=== PATIENT | female | born 1930 | race Caucasian/White ===

== ENCOUNTER → 2016-09-16 | Outpatient (CLI) | payer OTHER ==
[~2016-09-16] MED LIST: ASPI-435 PO; BIOT1CAP8 PO; CALC500C70 PO; CHLORTRIMETON PO; CHOL2000 PO; COEN1CAP32 PO; GLUC250C PO; INDAPAMIDE PO; IRON PO; LACT1CAP6 PO; LACTASE PO; LANS30CA12 PO; MAGN400T6 PO; MCRK20 PO; NAPR1TAB9 PO; PSYL0.524; RESERVATROL PO; SACC250C11; ZNTT/150 PO; tumeric PO
--- NOTE | 2016-09-16 12:28 | DIAGNOSTIC IMAGING REPORT ---
RIGHT WRIST MIN 3 VIEWS ROUTINE CLINICAL HISTORY: RIGHT WRIST PAIN Right fracture COMPARISON: 08/01/2016 DISCUSSION: Interval avulsion ulnar styloid unchanged from the prior study. Probable nondisplaced hairline fracture mid navicular. This is not seen in the prior study mild soft tissue edema IMPRESSION: 1. Small avulsion ulnar styloid unchanged. There are 2. Nondisplaced cortical fracture mid navicular Electronically signed by: Jordan Boyd M.D. 09/16/2016 12:26 PM
== END | disposition home or self-care (01) ==
LOC: C.RDSM 13:47
PROVIDERS: ATTEND Physical Medicine & Rehabilitation Sports Medicine
DX: R52 Pain, unspecified (principal)

== ENCOUNTER → 2016-12-24 | Outpatient (CLI) | payer OTHER ==
[~2016-12-24] MED LIST changes: +OPTIRAY 320 IV PRN
--- NOTE | 2016-12-24 10:12 | DIAGNOSTIC IMAGING REPORT ---
CHEST CT WITH CONTRAST CT DOSE: 547.03 mGy.cm HISTORY: Ovarian carcinoma neoplasm TECHNIQUE: Multiaxial CT images of the chest were performed following the intravenous administration of contrast. COMPARISON: 09/27/2016 FINDINGS: Unchanged exam. Stable nodule right base. No new or additional parenchymal nodularity. No focal infiltrate. Hilar and mediastinal regions show no significant adenopathy. Small hepatic cyst unchanged. IMPRESSION: No evidence for metastatic disease. No change from the prior study. Electronically signed by: Jordan Boyd M.D. 12/24/2016 10:10 AM Dictated Date/Time: 12/24/2016 10:08 AM
--- NOTE | 2016-12-24 10:19 | DIAGNOSTIC IMAGING REPORT ---
CT OF THE ABDOMEN AND PELVIS WITH CONTRAST CLINICAL HISTORY: Ovarian cancer. COMPARISON STUDY: CT of the abdomen and pelvis September 27, 2016. TECHNIQUE: Following IV administration of 94 mL of Optiray-320, axial images of the abdomen and pelvis were obtained from the lung bases to the proximal femurs. Images were reviewed in the axial, sagittal, and coronal planes. IV contrast was administered without complication. Oral contrast was administered. FINDINGS: The chest will reported separately. A few subcentimeter hypodense hepatic lesions are too small to characterize but are unchanged since prior exams. These are benign. The spleen, adrenal glands, kidneys and pancreas are unremarkable. The gallbladder is surgically absent. There is a moderate amount of stool within the colon. There is sigmoid diverticulosis without evidence for acute diverticulitis. There is no ascites. There is no bowel obstruction. A few suspected peritoneal nodules are seen noted. These include a 6 mm left upper quadrant nodule shown on image 110 of 446. This is unchanged since CT of September 27, 2016. A left mid abdominal mesenteric nodule measuring 1.3 x 0.7 cm has likely slightly decreased in size since prior exam when it measured 1.8 x 0.9 cm. No new peritoneal implants are present. No suspicious skeletal lesions are identified. IMPRESSION: 1. Slight decrease in a left lower quadrant mesenteric nodule since exam of September 27, 2016. Otherwise, a few suspected peritoneal implants are similar to prior exam. No evidence for progressive metastatic disease. 2. Moderate amount of stool within the colon. No bowel obstruction. Electronically signed by: Nas Yee M.D. 12/24/2016 10:17 AM Dictated Date/Time: 12/24/2016 10:08 AM
== END | disposition home or self-care (01) ==
LOC: C.CTS 09:31
PROVIDERS: ATTEND Nurse Practitioner
DX: C56.9 Malignant neoplasm of unspecified ovary (principal)

== ENCOUNTER → 2017-03-08 | Outpatient (CLI) | payer OTHER ==
[~2017-03-08] MED LIST changes: -OPTIRAY 320 IV PRN
--- NOTE | 2017-03-08 15:37 | MAMMOGRAPHY REPORT ---
BILATERAL DIGITAL SCREENING MAMMOGRAM WITH CAD: 03/08/2017 CLINICAL HISTORY: Routine screening. Patient has no complaints. TECHNIQUE: Bilateral CC, MLO, repeat right CC and MLO views were obtained. Current study was also ev aluated with a Computer Aided Detection (CAD) system. COMPARISON: Comparison is made to exams dated: 03/04/2016 mammogram, 02/13/2015 mammogram, 02/12/2014 lance mogram, 02/08/2013 mammogram, 01/27/2012 mammogram, and 01/25/2011 mammogram - [facility] ter. BREAST COMPOSITION: The tissue of both breasts is heterogeneously dense, which may obscure small mas ses. FINDINGS: The hub of a Mediport catheter is visualized in the posterior upper inner right breast. Th ere are mild vascular calcifications in the breasts. No suspicious mass, architectural distortion or cluster of suspicious microcalcifications is seen. IMPRESSION: ACR BI-RADS CATEGORY 1: NEGATIVE There is no mammographic evidence of malignancy. A 1 year screening mammogram is recommended. The pa tient will receive written notification of the results. Approximately 10% of breast cancers are not detected with mammography. A negative mammographic report should not delay biopsy if a clinically suggestive mass is present. Lani Ceja M.D. ay/:03/08/2017 14:40:26 Hog Killer: Jenae BLAKE)([place]), [facility] letter sent: Normal 1/2 BI-RADS Code: ACR BI-RADS Category 1: Negative
== END | disposition home or self-care (01) ==
LOC: C.MAMM 09:56
PROVIDERS: ATTEND Family Medicine
DX: Z12.31 Encounter for screening mammogram for malignant neoplasm of breast (principal)

== ENCOUNTER → 2017-03-21 | Outpatient (CLI) | payer OTHER ==
--- NOTE | 2017-03-21 14:08 | DIAGNOSTIC IMAGING REPORT ---
RIBS BILATERAL WITH PA CHEST HISTORY:86 yearsFemalePLEURODYNIA . History of ovarian cancer. COMPARISON: CT chest 12/24/2016 TECHNIQUE: Frontal view of the chest with additional views of the bilateral ribs. FINDINGS: Right internal jugular [id number] catheter is seen with distal tip terminating within the expected region of the proximal to mid SVC. Heart and mediastinal or hilar silhouettes are within normal limits. There is minimal biapical pleural parenchymal scarring. No pneumothorax, pleural effusion or focal airspace consolidation. Degenerative changes involve the shoulders bilaterally. Surgical clips are seen within the upper abdomen. No acute displaced rib fracture identified. IMPRESSION: 1. No acute cardiopulmonary process. 2. No acute displaced rib fracture or pneumothorax. The above report was generated using voice recognition software. It may contain grammatical, syntax or spelling errors. Electronically signed by: Vamshi Olvera 03/21/2017 2:07 PM Dictated Date/Time: 03/21/2017 2:04 PM
== END | disposition home or self-care (01) ==
LOC: C.RAD1850 13:41
PROVIDERS: ATTEND Family Medicine
DX: R07.81 Pleurodynia (principal)

== ENCOUNTER → 2017-04-20 | Outpatient (CLI) | payer OTHER ==
[~2017-04-20] MED LIST changes: +GADAVIST IV PRN
--- NOTE | 2017-04-20 21:56 | DIAGNOSTIC IMAGING REPORT ---
MRI OF THE BRAIN WITHOUT AND WITH IV CONTRAST CLINICAL HISTORY: Dizziness, abnormal gait, ovarian carcinoma. Possible metastatic disease. COMPARISON STUDY: No previous studies for comparison. TECHNIQUE: MRI of the brain was performed from the vertex to the skull base utilizing various T1 and T2 weighted sequences. Following the IV administration of 5.5 mL of Gadavist contrast, additional enhanced images were obtained. FINDINGS: Sagittal T1, axial diffusion, proton density and T2 weighted axial, coronal FLAIR, and pre and post axial T1-weighted images were acquired. These were supplemented with post gadolinium coronal T1 weighted images. There is a right hemispheric dural based extra-axial mass in the region of the sylvian fissure measuring 11 mm. While nonspecific, this likely represents a meningioma. Axial diffusion-weighted images reveal no evidence of acute or subacute infarction. There is no evidence of ventricular dilatation. Proton density T2-weighted and FLAIR images reveal there are moderate foci of increased T2 and FLAIR signal within the white matter, likely on a small vessel basis. There are no abnormal flow voids. With the exception of the enhancing right-sided extra-axial mass, there are no pathologically enhancing lesions. IMPRESSION: 1. No evidence of acute or subacute infarction 2. 11 mm enhancing dural based extra-axial mass in the region the right sylvian fissure. While nonspecific, this likely represents a meningioma 3. Moderate white matter disease likely a small vessel basis Electronically signed by: Tyree Pinzon M.D. 04/20/2017 9:54 PM Dictated Date/Time: 04/20/2017 9:52 PM
== END | disposition home or self-care (01) ==
LOC: C.MRI 20:29
PROVIDERS: ATTEND Internal Medicine Hematology & Oncology
DX: C56.9 Malignant neoplasm of unspecified ovary (principal); R22.0 Localized swelling, mass and lump, head; C18.9 Malignant neoplasm of colon, unspecified; C77.2 Secondary and unspecified malignant neoplasm of intra-abdominal lymph nodes; R35.0 Frequency of micturition; C48.2 Malignant neoplasm of peritoneum, unspecified

== ENCOUNTER → 2017-06-23 | Outpatient (CLI) | payer OTHER ==
[~2017-06-23] MED LIST changes: -GADAVIST IV PRN; +OPTIRAY 320 IV PRN
--- NOTE | 2017-06-23 12:32 | DIAGNOSTIC IMAGING REPORT ---
CHEST CT WITH CONTRAST CT DOSE: 620.36 mGy.cm HISTORY: OVARIAN CANCER TECHNIQUE: Multiaxial CT images of the chest were performed following the intravenous administration of contrast. A dose lowering technique was utilized adhering to the principles of ALARA. COMPARISON: Chest CT 12/24/2016. FINDINGS: No pneumothorax. No pleural effusions. The central airways are patent. Stable 5 mm nodule at the base of the right lower lobe on image 212. Stable 4 mm subpleural nodule within the left lower lobe on image 198. No new or suspicious pulmonary nodules identified. No suspicious lytic or blastic osseous lesions. A right Port-A-Cath terminates at the brachiocephalic/SVC junction. Small fat-containing right-sided Bochdalek hernia. No mediastinal or hilar lymphadenopathy. Aberrant right subclavian artery is again noted. There is approximately 50% stenosis at the proximal right subclavian artery. The main pulmonary arteries are patent. Thyroid gland appears surgically absent. IMPRESSION: No change compared to the prior studies. No evidence for metastatic disease within the chest. Please refer to the dedicated abdomen and pelvis CT performed the same day for further evaluation of the abdominal structures. Electronically signed by: Terrance Chapin M.D. 06/23/2017 12:31 PM Dictated Date/Time: 06/23/2017 12:24 PM
--- NOTE | 2017-06-23 12:36 | DIAGNOSTIC IMAGING REPORT ---
CT ABD/PELVIS IV AND ORAL CONT CLINICAL HISTORY: OVARIAN CANCER COMPARISON STUDY: 12/24/2016 TECHNIQUE: Following the IV administration of 94 mL of Optiray-320, CT scan of the abdomen and pelvis was performed from the lung bases to the proximal femurs. Images are reviewed in the axial, sagittal, and coronal planes. IV contrast was administered without complication. A dose lowering technique was utilized adhering to the principles of ALARA. CT DOSE: FINDINGS: Lower chest: The heart is normal in size and configuration, without pericardial effusion. The lung bases and pleural spaces are clear. Liver: There is a stable 4 mm hypodensity within the right hepatic lobe likely representing a cyst. There is mild hepatic steatosis. Gallbladder: Surgically absent Spleen: Normal in size and attenuation. Pancreas: Unremarkable. Adrenal glands: Unremarkable. Kidneys: There is symmetric renal cortical enhancement. The kidneys are normal in size without hydronephrosis. Bowel: There are no transition zones indicate bowel obstruction. No acute inflammatory changes are visualized. The appendix appears normal. Peritoneum: There are several left upper quadrant peritoneal nodules, the largest of which measures 1 cm. These appear larger on the preceding study, and are concerning for peritoneal tumor. The previously identified 13 mm left lower quadrant peritoneal nodule, is equivocally larger measuring 15 mm the current study. Vasculature: The abdominal aorta is normal in course and caliber. Adenopathy: None. Pelvic viscera: The uterus appears surgically absent Skeletal structures: No destructive osseous lesions are seen. IMPRESSION: 1. Slight increase in the size of the left peritoneal nodules, a finding viewed as suspicious for progressive peritoneal tumor implants. 2. No evidence of bowel obstruction. No evidence of free air. Normal appendix. Electronically signed by: Tyree Pinzon M.D. 06/23/2017 12:35 PM Dictated Date/Time: 06/23/2017 12:27 PM
== END | disposition home or self-care (01) ==
LOC: C.CTS 11:33
PROVIDERS: ATTEND Internal Medicine Hematology & Oncology
DX: C56.9 Malignant neoplasm of unspecified ovary (principal)

== ENCOUNTER → 2017-09-26 | Outpatient (CLI) | payer OTHER ==
[~2017-09-26] MED LIST changes: +GADAVIST IV PRN; -OPTIRAY 320 IV PRN
--- NOTE | 2017-09-26 08:52 | DIAGNOSTIC IMAGING REPORT ---
BRAIN COMBO HISTORY: 86 years-old Female OVARIAN CA acute dizziness for 6 months. History of ovarian carcinoma. COMPARISON: Brain MRI 04/20/2017, PET CT 08/27/2015 TECHNIQUE: Multiplanar multisequence MRI the brain was obtained both with and without the use of 5.5 mL Gadavist FINDINGS: There is no restricted diffusion to suggest acute infarction. The midline structures including the corpus callosum, brainstem, optic chiasm, infundibulum, pituitary and pineal glands are unremarkable in the sagittal T1 series. No cerebellar tonsillar herniation. Imaged upper cervical spine is unremarkable. There are scattered punctate areas of susceptibility artifact throughout the bilateral cerebral hemispheres which appear unchanged from prior study suggesting areas of microhemorrhage. No acute intracranial hemorrhage, midline shift, abnormal extra-axial collections or hydrocephalus. Moderate atrophy with multifocal areas of T2/FLAIR prolongation within the subcortical, deep and periventricular white matter of the cerebral hemispheres bilaterally compatible with chronic microvascular ischemic changes. Unchanged 10 x 11 x 7 mm dural based lesion adjacent to the right sylvian fissure is again seen nicely demonstrated on image 10 of series 10 and image 9 of series 11 which appears unchanged from comparison. No additional intra-axial or extra-axial lesions or abnormal enhancement identified. The major flow voids at the level of the skull base are patent. Mastoid air cells appear clear. Paranasal sinuses are also generally clear. Scalp, calvarium and soft tissues are unremarkable. IMPRESSION: 1. No acute intracranial abnormality identified. 2. Unchanged 11 mm dural-based enhancing lesion adjacent to the right sylvian fissure is again seen suggesting a meningioma. No additional abnormal intra-axial or extra-axial enhancement identified. 3. Stable findings as above. The above report was generated using voice recognition software. It may contain grammatical, syntax or spelling errors. Electronically signed by: Vamshi Olvera M.D. 09/26/2017 8:51 AM Dictated Date/Time: 09/26/2017 8:41 AM
== END ==
LOC: C.MRI 07:31
PROVIDERS: ATTEND Internal Medicine Hematology & Oncology
DX: C56.9 Malignant neoplasm of unspecified ovary (principal)

== ENCOUNTER → 2017-11-11 | Outpatient (CLI) | payer OTHER ==
[~2017-11-11] MED LIST changes: -GADAVIST IV PRN; +RANI150T85 PO; -ZNTT/150 PO
--- NOTE | 2017-11-11 12:39 | DIAGNOSTIC IMAGING REPORT ---
CT ABD/PELVIS IV AND ORAL CONT CLINICAL HISTORY: OVARIAN CA COMPARISON STUDY: 06/23/2017 TECHNIQUE: Following the IV administration of 94 mL of Optiray-320, CT scan of the abdomen and pelvis was performed from the lung bases to the proximal femurs. Images are reviewed in the axial, sagittal, and coronal planes. IV contrast was administered without complication. A dose lowering technique was utilized adhering to the principles of ALARA. CT DOSE: 465.11 mGycm FINDINGS: Lower chest: The heart is normal in size and configuration, without pericardial effusion. The lung bases and pleural spaces are clear. Liver: There is a stable 7 mm hypodensity within the right hepatic lobe. Gallbladder: Surgically absent Spleen: Normal in size and attenuation. Pancreas: Unremarkable. Adrenal glands: Unremarkable. Kidneys: There is symmetric renal cortical enhancement. The kidneys are normal in size without hydronephrosis. Bowel: There is mild fecal retention. There are no transition zones indicate bowel obstruction. There are no acute inflammatory changes. The appendix appears normal. Peritoneum: There is stable to minimally improved omental/peritoneal nodularity. Surgical clips are visualized in the region of the omentum. Vasculature: The abdominal aorta is normal in course and caliber. Adenopathy: None. Pelvic viscera: The uterus is surgically absent. Skeletal structures: No destructive osseous lesions are seen. IMPRESSION: 1. No evidence of bowel obstruction. No evidence of free air. 2. Normal appendix 3. No evidence of pathologic adenopathy 4. Stable to minimally improved omental/peritoneal implants. Electronically signed by: Tyree Pinzon M.D. 11/11/2017 12:38 PM Dictated Date/Time: 11/11/2017 12:33 PM
== END | disposition home or self-care (01) ==
LOC: C.CTS 12:11
PROVIDERS: ATTEND Internal Medicine Hematology & Oncology
DX: C56.9 Malignant neoplasm of unspecified ovary (principal)

== ENCOUNTER 2018-08-31 13:56 | Inpatient (IN) ==
[2018-08-31 15:22] LABS: Basophils # (auto) 0.03 K/uL (0-0.2); Basophils % (auto) 0.3 %; Eosinophils # (auto) 0.02 K/uL (0-0.5); Eosinophils % (auto) 0.2 %; Hematocrit (blood only) 34.8 % (37-47); Hemoglobin 11.6 g/dL (12.0-16.0); Immature Granulocytes # (auto) 0.01 K/uL (0.00-0.02); Immature Granulocytes % (auto) 0.1 %; Lymphocytes # (auto) 1.15 K/uL (1.2-3.4); Lymphocytes % (auto) 12.9 %; Mean Corpuscular Hgb Conc 33.3 g/dL (32-36); Mean Corpuscular Volume 104.5 fL (80-100); Mean Platelet Volume 8.7 fL (7.4-10.4); Monocytes # (auto) 1.28 K/uL (0.11-0.59); Monocytes % (auto) 14.3 %; Neutrophils # (auto) 6.43 K/uL (1.4-6.5); Neutrophils % (auto) 72.2 %; Nucleated RBC # (auto) 0.08 K/uL (0-0); Nucleated RBC % (auto) 0.9 %; Platelet Count 270 K/uL (130-400); RDW Coefficient of Variation 13.2 % (11.5-14.5); RDW Standard Deviation 49.7 fL (36.4-46.3); Red Blood Count 3.33 M/uL (4.2-5.4); White Blood Count 8.92 K/uL (4.8-10.8)
[2018-08-31 15:32] LABS: Partial Thromboplastin Ratio 1.4; Prothrombin Time 10.5 Seconds (9.0-12.0)
[2018-08-31 15:40] LABS: Albumin Level 3.7 gm/dl (3.4-5.0); BUN Creatinine Ratio 33.3 (10-20); Calcium 9.1 mg/dl (8.5-10.1); Creatinine Clr Calc Pharmacy 28.6 ml/min; Est GFR (African American) 57.7; Est GFR (Non-African American) 49.8; Potassium 4.3 mmol/L (3.5-5.1)
[2018-08-31 15:42] LABS: Bilirubin,Total 0.5 mg/dl (0.1-1); Globulin 3.6 gm/dl (2.5-4.0); Total Protein 7.3 gm/dl (6.4-8.2)
[2018-08-31 17:58] LABS: Appearance Urine Clear (Clear); Bacteria Urine Automated Negative (Negative); Bilirubin Urine Negative (Negative); Color Urine Yellow; Glucose Urine UA Negative (Negative); Ketones Urine Trace (Negative); Leukocyte Esterase Urine Trace (Negative); Nitrite Urine Negative (Negative); Specific Gravity Urine 1.019 (1.000-1.030); Urobilinogen Urine Negative (Negative); pH Urine >= 9.0 (4.5-7.5)
[2018-08-31 18:02] LABS: Protein Urine Negative (Negative)
[2018-09-01 06:14] LABS: Estimated Average Glucose 126 mg/dl
[2018-09-01 06:17] LABS: Basophils # (auto) 0.02 K/uL (0-0.2); Basophils % (auto) 0.3 %; Eosinophils # (auto) 0.17 K/uL (0-0.5); Eosinophils % (auto) 2.6 %; Hematocrit (blood only) 33.4 % (37-47); Hemoglobin 11.1 g/dL (12.0-16.0); Immature Granulocytes # (auto) 0.02 K/uL (0.00-0.02); Immature Granulocytes % (auto) 0.3 %; Lymphocytes # (auto) 1.52 K/uL (1.2-3.4); Lymphocytes % (auto) 22.9 %; Mean Corpuscular Hgb Conc 33.2 g/dL (32-36); Mean Corpuscular Volume 102.8 fL (80-100); Mean Platelet Volume 8.6 fL (7.4-10.4); Monocytes # (auto) 0.87 K/uL (0.11-0.59); Monocytes % (auto) 13.1 %; Neutrophils # (auto) 4.04 K/uL (1.4-6.5); Neutrophils % (auto) 60.8 %; Platelet Count 247 K/uL (130-400); RDW Coefficient of Variation 13.3 % (11.5-14.5); RDW Standard Deviation 49.8 fL (36.4-46.3); Red Blood Count 3.25 M/uL (4.2-5.4); White Blood Count 6.64 K/uL (4.8-10.8)
[2018-09-01 06:46] LABS: BUN Creatinine Ratio 31.8 (10-20); Calcium 8.4 mg/dl (8.5-10.1); Creatinine Clr Calc Pharmacy 34.9 ml/min; Est GFR (Non-African American) 63.9; Potassium 3.9 mmol/L (3.5-5.1)
== END 2018-09-01 17:07 | disposition home or self-care (01) ==
LOC: ED 13:56 → 2W 19:48 → SUATTDRO 19:48 → 2W 22:28